=== PATIENT | male | born 1980 | race American Indian/Alaskan Native ===

== ENCOUNTER 2021-07-27 00:17 | Inpatient (IN) | payer OTHER ==
[2021-07-27] MEDS ORDERED: NALOXONE 0.4 MG/1 ML INJ IV PRN (00:19)
[2021-07-27] MEDS ORDERED: LORazepam 2 MG/ML VIAL IM PRN (00:19)
[2021-07-27] MEDS ORDERED: HALOPERIDOL LACTATE 5 MG/1 ML INJ IM PRN (00:19)
--- NOTE | 2021-07-27 00:20 | Emergency Department Report ---
ED General Adult HPI - General Chief complaint: Overdose Stated complaint: OVERDOSE Time Seen by Provider: 07/27/21 00:18 Source: patient, EMS (Verbal report received from emergency medical services. EMS documentation not available at time of chart dictation ), RN notes reviewed Mode of arrival: Stretcher - History of Present Illness Initial comments: This patient is a 40-year-old gentleman. He is brought to the hospital by emergency medical services. History obtained from EMS. As per verbal report from emergency medical services, patient reportedly took 35 tablets of a mitriptyline/Elavil, 1 hour prior to ER arrival, with a complaint of headache. EMS reports unremarkable vital signs in the field. In the emergency room, the patient is somnolent, but protecting his airway. He denies physical pain. The patient denies homicidality and suicidality. Patient is intoxicated/impaired at this time, and not able to describe the qualitative nature of symptoms, exacerba ting factors relieving factors or aggravating factors -: This evening Location: head - Related Data Allergies Allergy/AdvReac Type Severity Reaction Status Date / Time No Known Allergies Allergy Unverified 07/27/21 00:19 ED Review of Systems ROS: Stated complaint: OVERDOSE Other details as noted in HPI Comment: Unobtainable due to pts medical conditions Neurological: headache, confusion Psychiatric: denies: homicidal thoughts, suicidal thoughts ED Physical Exam - General Limitations: Altered Mental Status General appearance: appears intoxicated, lethargic - Head Head exam: Present: atraumatic, normocephalic - Eye Eye exam: Present: normal appearance, EOMI. Absent: nystagmus - ENT ENT exam: Present: normal exam, normal orophraynx, mucous membranes moist, normal external ear exam - Neck Neck exam: Present: normal inspection, full ROM. Absent: tenderness, meningismus - Respiratory Respiratory exam: Present: normal lung sounds bilaterally. Absent: respiratory distress, wheezes, rales, rhonchi, stridor, decreased breath sounds - Cardiovascular Cardiovascular Exam: Present: regular rate, normal rhythm, normal heart sounds. Absent: bradycardia, tachycardia, irregular rhythm, systolic murmur, diastolic murmur, rubs, gallop - GI/Abdominal GI/Abdominal exam: Present: soft. Absent: distended, tenderness, guarding, rebound, rigid, pulsatile mass - Rectal Rectal exam: Present: deferred - Extremities Exam Extremities exam: Present: normal inspection, other (2+ pulses noted in the bilateral upper and lower extremities. There is no palpable cord. negative Homans sign. Muscular compartments are soft. The pelvis is stable.). Absent: pedal edema, calf tenderness - Back Exam Back exam: Present: normal inspection. Absent: tenderness, CVA tenderness (R), CVA tenderness (L), paraspinal tenderness, vertebral tenderness - Neurological Exam Neurological exam: Present: altered, other (There is no facial droop. The tongue is midline. EOMI. Moves 4 extremities spontaneously.) - Psychiatric Psychiatric exam: Present: flat affect. Absent: homicidal ideation, suicidal ideation - Skin Skin exam: Present: warm, dry, intact, normal color. Absent: rash ED Course Vital Signs 07/27/21 07/27/21 07/27/21 00:21 00:32 00:35 Temperature 97.9 F 97.9 F Pulse Rate 90 90 Respiratory 17 17 17 Rate Blood Pressure 125/86 125/86 Blood Pressure 125/86 [Right] O2 Sat by Pulse 99 99 99 Oximetry 07/27/21 07/27/21 07/27/21 01:27 02:00 03:00 Temperature Pulse Rate 72 64 68 Respiratory 14 14 15 Rate Blood Pressure Blood Pressure 120/84 123/90 126/91 [Right] O2 Sat by Pulse 99 98 100 Oximetry - Reevaluation(s) Reevaluation #1: 07/27/21 00:49 Differential diagnosis, include but not limited to: Overdose, toxic encephalo louisa Assessment and plan: 40-year-old gentleman, presenting with sleepiness, lethargy, altered mental status, after overdose of amitriptyline, reportedly for headache. The patient reports he is not homicidal or suicidal. He is chemically impaired at this time. He is placed on hold. Psychiatric consultation requested. Noncontrast CT scan of the brain obtained, do not appreciate any obvious bleeding. Poison Control Center contacted by nursing team, their recommendations are reviewed and appreciated. Patient will be admitted to the medical service once initial diagnostics have resulted. They recommend EKG every 2 hours, I will defer to inpatient team to follow-up on EKG is ordered for hours 2, and 4. Should family present to the emergency room, we will discuss recommendations. Reevaluation #2: 07/27/21 00:51 Given alteration in mental status and aspiration risk, would not initiate charcoal at this time. 07/27/21 01:22 discussed with [facility] [place] [facility] [place] [facility] their recommendations are appreciated They advised supportive care, benzodiazepines for seizures and advised EKG every 2 hours. Should QRS lengthened to greater than 100 ms, they recommends trial dose of 2 A of sodium bicarbonate, and if QRS narrows with this intervention, consider initiation of sodium bicarbonate drip. Hospital physician, Dr. Kern to admit to [facility] 07/27/21 03:48 Patient is more awake and arousable. EKG #2 is unchanged from prior EKG. Vital signs stable and unremarkable at this time. Awaiting bed placement into the stepdown unit. ED Medical Decision Making - Lab Data Result diagrams: 07/27/21 00:25 07/27/21 00:25 Vital Signs 07/27/21 07/27/21 07/27/21 00:21 00:32 00:35 Temperature 97.9 F 97.9 F Pulse Rate 90 90 Respiratory 17 17 17 Rate Blood Pressure 125/86 125/86 Blood Pressure 125/86 [Right] O2 Sat by Pulse 99 99 99 Oximetry Lab Results 07/27/21 07/27/21 07/27/21 Range/Units 00:25 00:25 00:25 WBC 2.8 L (4.5-11.0) K/mm3 RBC 4.66 (3.65-5.03) M/mm3 Hgb 14.0 (11.8-15.2) gm/dl Hct 42.2 (35.5-45.6) % MCV 91 (84-94) fl MCH 30 (28-32) pg MCHC 33 (32-34) % RDW 13.4 (13.2-15.2) % Plt Count 167 (140-440) K/mm3 Lymph % (Auto) 37.7 H (13.4-35.0) % [place] % (Auto) 15.2 H (0.0-7.3) % Eos % (Auto) 2.8 (0.0-4.3) % Baso % (Auto) 0.5 (0.0-1.8) % Lymph # (Auto) 1.0 L (1.2-5.4) K/mm3 [place] # (Auto) 0.4 (0.0-0.8) K/mm3 Eos # (Auto) 0.1 (0.0-0.4) K/mm3 Baso # (Auto) 0.0 (0.0-0.1) K/mm3 Seg Neutrophils % 43.8 (40.0-70.0) % Seg Neutrophils # 1.2 L (1.8-7.7) K/mm3 PT (12.2-14.9) Sec. INR (0.87-1.13) APTT (24.2-36.6) Sec. Sodium 138 (137-145) mmol/L Potassium 3.7 (3.6-5.0) mmol/L Chloride 101.8 (98-107) mmol/L Carbon Dioxide 26 (22-30) mmol/L Anion Gap 14 mmol/L BUN 16 (9-20) mg/dL Creatinine 1.2 (0.8-1.3) mg/dL Estimated GFR > 60 ml/min BUN/Creatinine Ratio 13 % Glucose 122 H (75-100) mg/dL POC Glucose (70-105) mg/dL Calcium 8.6 (8.4-10.2) mg/dL Total Bilirubin 0.60 (0.1-1.2) mg/dL AST 20 (5-40) units/L ALT 21 (7-56) units/L Alkaline Phosphatase 64 (35-129) units/L Total Protein 7.2 (6.3-8.2) g/dL Albumin 4.3 (3.9-5) g/dL Albumin/Globulin Ratio 1.5 % Salicylates < 0.3 L (2.8-20.0) mg/dL Acetaminophen (10.0-30.0) ug/mL Plasma/Serum Alcohol (0-0.07) % 07/27/21 07/27/21 07/27/21 Range/Units 00:25 00:25 00:25 WBC (4.5-11.0) K/mm3 RBC (3.65-5.03) M/mm3 Hgb (11.8-15.2) gm/dl Hct (35.5-45.6) % MCV (84-94) fl MCH (28-32) pg MCHC (32-34) % RDW (13.2-15.2) % Plt Count (140-440) K/mm3 Lymph % (Auto) (13.4-35.0) % [place] % (Auto) (0.0-7.3) % Eos % (Auto) (0.0-4.3) % Baso % (Auto) (0.0-1.8) % Lymph # (Auto) (1.2-5.4) K/mm3 [place] # (Auto) (0.0-0.8) K/mm3 Eos # (Auto) (0.0-0.4) K/mm3 Baso # (Auto) (0.0-0.1) K/mm3 Seg Neutrophils % (40.0-70.0) % Seg Neutrophils # (1.8-7.7) K/mm3 PT 13.9 (12.2-14.9) Sec. INR 0.97 (0.87-1.13) APTT 30.8 (24.2-36.6) Sec. Sodium (137-145) mmol/L Potassium (3.6-5.0) mmol/L Chloride (98-107) mmol/L Carbon Dioxide (22-30) mmol/L Anion Gap mmol/L BUN (9-20) mg/dL Creatinine (0.8-1.3) mg/dL Estimated GFR ml/min BUN/Creatinine Ratio % Glucose (75-100) mg/dL POC Glucose (70-105) mg/dL Calcium (8.4-10.2) mg/dL Total Bilirubin (0.1-1.2) mg/dL AST (5-40) units/L ALT (7-56) units/L Alkaline Phosphatase (35-129) units/L Total Protein (6.3-8.2) g/dL Albumin (3.9-5) g/dL Albumin/Globulin Ratio % Salicylates (2.8-20.0) mg/dL Acetaminophen 5.0 L (10.0-30.0) ug/mL Plasma/Serum Alcohol < 0.01 (0-0.07) % 07/27/21 Range/Units 00:29 WBC (4.5-11.0) K/mm3 RBC (3.65-5.03) M/mm3 Hgb (11.8-15.2) gm/dl Hct (35.5-45.6) % MCV (84-94) fl MCH (28-32) pg MCHC (32-34) % RDW (13.2-15.2) % Plt Count (140-440) K/mm3 Lymph % (Auto) (13.4-35.0) % [place] % (Auto) (0.0-7.3) % Eos % (Auto) (0.0-4.3) % Baso % (Auto) (0.0-1.8) % Lymph # (Auto) (1.2-5.4) K/mm3 [place] # (Auto) (0.0-0.8) K/mm3 Eos # (Auto) (0.0-0.4) K/mm3 Baso # (Auto) (0.0-0.1) K/mm3 Seg Neutrophils % (40.0-70.0) % Seg Neutrophils # (1.8-7.7) K/mm3 PT (12.2-14.9) Sec. INR (0.87-1.13) APTT (24.2-36.6) Sec. Sodium (137-145) mmol/L Potassium (3.6-5.0) mmol/L Chloride (98-107) mmol/L Carbon Dioxide (22-30) mmol/L Anion Gap mmol/L BUN (9-20) mg/dL Creatinine (0.8-1.3) mg/dL Estimated GFR ml/min BUN/Creatinine Ratio % Glucose (75-100) mg/dL POC Glucose 107 H (70-105) mg/dL Calcium (8.4-10.2) mg/dL Total Bilirubin (0.1-1.2) mg/dL AST (5-40) units/L ALT (7-56) units/L Alkaline Phosphatase (35-129) units/L Total Protein (6.3-8.2) g/dL Albumin (3.9-5) g/dL Albumin/Globulin Ratio % Salicylates (2.8-20.0) mg/dL Acetaminophen (10.0-30.0) ug/mL Plasma/Serum Alcohol (0-0.07) % - EKG Data -: EKG Interpreted by De EKG shows normal: sinus rhythm Rate: normal - EKG Data 07/27/21 00:50 EKG #1 is interpreted at 12: 5 0 a.m. Sinus rhythm, rate 64 bpm. Normal axis, normal P wave axis, high left ventricular voltage, QT 3 9 3 ms, QTC 407 ms, [place] interval 1 6 2 ms. Minimal motion artifact. Not a STEMI peer - Radiology Data Radiology results: pending, report reviewed, image reviewed CT head/brain wo con INDICATION: headache ams od. TECHNIQUE: All CT scans at this location are performed using CT dose reduction for ALARA by means of automated exposure control. COMPARISON: None available. FINDINGS: There is no acute hemorrhage, brain edema, or hydrocephalus. The brain appears normal for age. The visualized paranasal sinuses are clear. IMPRESSION: 1. No acute intracranial abnormality. Signer Name: Sergio Sweeney MD Signed: 07/26/2021 11:56 PM Workstation Name: [id number] Critical care attestation.: If time is entered above; I have spent that time in minutes in the direct care of this critically ill patient, excluding procedure time. ED Disposition Clinical Impression: Overdose, Encephalopathy, Headache Disposition: ADMITTED INPATIENT Is pt being admited?: Yes Does the pt Need Aspirin: No Condition: Serious
[2021-07-27 00:52] LABS: Basophils % (Auto) 0.5 % (0.0-1.8); Eosinophils # (Auto) 0.1 K/mm3 (0.0-0.4); Eosinophils % (Auto) 2.8 % (0.0-4.3); Hematocrit 42.2 % (35.5-45.6); Lymphocytes % (Auto) 37.7 % (13.4-35.0); Mean Corpuscular HGB Conc 33 % (32-34); Mean Corpuscular Volume 91 fl (84-94); Monocytes # (Auto) 0.4 K/mm3 (0.0-0.8); Monocytes % (Auto) 15.2 % (0.0-7.3); Platelet Count 167 K/mm3 (140-440); Red Blood Count 4.66 M/mm3 (3.65-5.03); Red Cell Distribution Width 13.4 % (13.2-15.2)
[2021-07-27 00:59] LABS: INR 0.97 (0.87-1.13)
[2021-07-27 01:00] LABS: Partial Thromboplastin Time 30.8 Sec. (24.2-36.6)
--- NOTE | 2021-07-27 01:00 | Cat Scan Report ---
CT head/brain wo con INDICATION: headache ams od. TECHNIQUE: All CT scans at this location are performed using CT dose reduction for ALARA by means of automated e xposure control. COMPARISON: None available. FINDINGS: There is no acute hemorrhage, brain edema, or hydrocephalus. The brain appears normal for age. The vi sualized paranasal sinuses are clear. IMPRESSION: 1. No acute intracranial abnormality. Signer Name: Sergio Sweeney MD Signed: 07/27/2021 12:56 AM Workstation Name: [id number] [email or web address] [id number]
[2021-07-27 01:09] LABS: Alanine Aminotransferase 21 units/L (7-56); Albumin 4.3 g/dL (3.9-5); BUN/Creatinine Ratio 13; Blood Urea Nitrogen 16 mg/dL (9-20); Calcium 8.6 mg/dL (8.4-10.2); Hemolysis Index 9
[2021-07-27] MEDS ORDERED: LACTATED RINGERS 1,000 ML IV ONE (01:17)
[2021-07-27 01:28] LABS: Bilirubin,Urine NEG (Negative); Blood,Urine NEG (Negative); Color,Urine Straw (Yellow); Protein,Urine <15 mg/dL mg/dL (Negative); Urobilinogen,Urine < 2.0 mg/dL (<2.0)
[2021-07-27 01:39] LABS: Amphetamine Screen,Urine PRESUMPTIVE NEGATIVE; Benzodiazepines Screen,Urine PRESUMPTIVE NEGATIVE; Cannabinoid Screen,Urine PRESUMPTIVE POSITIVE; Cocaine Screen,Urine PRESUMPTIVE NEGATIVE; Methadone Screen,Urine PRESUMPTIVE NEGATIVE; Opiate Screen,Urine PRESUMPTIVE NEGATIVE
[2021-07-27 01:46] LABS: Mucus,Urine FEW /HPF; RBC,Urine < 1.0 /HPF (0.0-6.0); WBC,Urine < 1.0 /HPF (0.0-6.0)
[2021-07-27] MEDS ORDERED: MORPHINE 2 MG/1 ML INJ IV PRN (02:17)
[2021-07-27] MEDS ORDERED: ACETAMINOPHEN 325 MG TAB PO PRN (02:17)
[2021-07-27] MEDS ORDERED: ALBUTEROL 2.5 MG/3 ML NEBU IH PRN (02:17)
[2021-07-27] MEDS ORDERED: HYDROmorphone 1 MG/1 ML INJ IV PRN (02:17)
[2021-07-27] MEDS ORDERED: ONDANSETRON 4 MG/2 ML INJ IV PRN (02:17)
--- NOTE | 2021-07-27 02:25 | History and Physical Report ---
History of Present Illness Date of examination: 07/27/21 Date of admission: 07/27/21 Chief complaint: Drug overdose Altered mental status History of present illness: 40-year male with unknown past medical history was brought to the emergency room because sleepiness, lethargy, altered mental status, after overdose of amitriptyline, reportedly for headache. As per verbal report from emergency medical services, patient reportedly took 35 tablets of amitriptyline/Elavil, 1 hour prior to ER arrival, with a complaint of headache. The patient is not homicidal or suicidal. He is chemically impaired at this time. He is placed on hold. Psychiatric consultation requested. In the emergency room noncontrast CT scan of the brain showed no acute intracranial abnormality. Urine drug screen is positive for marijuana. Poison Control Center contacted by nursing team,'s were going to admit the patient to the [facility]. We will put the patient nothing by mouth IV fluid. We will monitor the patient closely we also consult psych for evaluation Past History Past Surgical History: No surgical history Social history: other (Marijuana abuse) Family history: no significant family history Medications and Allergies Allergies Allergy/AdvReac Type Severity Reaction Status Date / Time No Known Allergies Allergy Unverified 07/27/21 00:19 Active Meds: Active Medications Acetaminophen (Acetaminophen 325 Mg Tab) 650 mg PO Q4H PRN PRN Reason: Pain MILD(1-3)/Fever >100.5/CORRALES Albuterol (Albuterol 2.5 Mg/3 Ml Nebu) 2.5 mg IH Q3HRT PRN PRN Reason: Shortness Of Breath Albuterol/Ipratropium (Ipratropium/Albuterol Sulfate 3 Ml Ampul.Neb) 1 ampul IH Q6HRT VALERIE Famotidine (Famotidine 20 Mg/2 Ml Inj) 20 mg IV BID VALERIE Haloperidol Lactate (Haloperidol Lactate 5 Mg/1 Ml Inj) 5 mg IM Q6HR PRN PRN Reason: Agitation Heparin Sodium (Porcine) (Heparin 5,000 Unit/1 Ml Vial) 5,000 unit SUB-Q Q12HR VALERIE Hydromorphone HCl (Hydromorphone 1 Mg/1 Ml Inj) 0.5 mg IV Q3H PRN PRN Reason: Pain , Severe (7-10) Dextrose/Sodium Chloride (D5/0.45ns) 1,000 mls @ 125 mls/hr IV DIRECT VALERIE Lorazepam (Lorazepam 2 Mg/Ml Vial) 2 mg IM Q4HR PRN PRN Reason: Agitation Morphine Sulfate (Morphine 2 Mg/1 Ml Inj) 2 mg IV Q4H PRN PRN Reason: Pain, Moderate (4-6) Naloxone HCl (Naloxone 0.4 Mg/1 Ml Inj) 0.1 mg IV Q2MIN PRN PRN Reason: Res Rate </= 8 or 02 SAT < 92% Ondansetron HCl (Ondansetron 4 Mg/2 Ml Inj) 4 mg IV Q8H PRN PRN Reason: Nausea And Vomiting Sodium Chloride (Sodium Chloride 0.9% 10 Ml Flush Syringe) 10 ml IV BID VALERIE Sodium Chloride (Sodium Chloride 0.9% 10 Ml Flush Syringe) 10 ml IV PRN PRN PRN Reason: LINE FLUSH Review of Systems All systems: negative Constitutional: malaise, lethargy, other (Altered mental status, sleepy) Exam - Constitutional Vitals: Temp Pulse Resp BP Pulse Ox 97.9 F 64 14 123/90 98 07/27/21 00:32 07/27/21 02:00 07/27/21 02:00 07/27/21 02:00 07/27/21 02:00 General appearance: Present: no acute distress, well-nourished - EENT Eyes: Present: PERRL ENT: hearing intact, clear oral mucosa - Neck Neck: Present: supple, normal ROM - Respiratory Respiratory effort: normal Respiratory: bilateral: CTA - Cardiovascular Heart Sounds: Present: S1 & S2. Absent: rub, click - Extremities Extremities: pulses symmetrical, No edema Peripheral Pulses: within normal limits - Abdominal General gastrointestinal: Present: soft, non-tender, non-distended, normal bowel sounds Male genitourinary: Present: normal - Integumentary Integumentary: Present: clear, warm, dry - Musculoskeletal Musculoskeletal: gait normal, strength equal bilaterally - Psychiatric Psychiatric: other (Patient is sleepy, altered mental status) - Neurologic Neurologic: CNII-XII intact, moves all extremities, other (Patient is sleepy, altered mental status) Results - Labs CBC & Chem 7: 07/27/21 00:25 07/27/21 00:25 Labs: Laboratory Last Values WBC 2.8 K/mm3 (4.5-11.0) L 07/27/21 00:25 RBC 4.66 M/mm3 (3.65-5.03) 07/27/21 00:25 Hgb 14.0 gm/dl (11.8-15.2) 07/27/21 00:25 Hct 42.2 % (35.5-45.6) 07/27/21 00:25 MCV 91 fl (84-94) 07/27/21 00:25 MCH 30 pg (28-32) 07/27/21 00:25 MCHC 33 % (32-34) 07/27/21 00:25 RDW 13.4 % (13.2-15.2) 07/27/21 00:25 Plt Count 167 K/mm3 (140-440) 07/27/21 00:25 Lymph % (Auto) 37.7 % (13.4-35.0) H 07/27/21 00:25 [place] % (Auto) 15.2 % (0.0-7.3) H 07/27/21 00:25 Eos % (Auto) 2.8 % (0.0-4.3) 07/27/21 00:25 Baso % (Auto) 0.5 % (0.0-1.8) 07/27/21 00:25 Lymph # (Auto) 1.0 K/mm3 (1.2-5.4) L 07/27/21 00:25 [place] # (Auto) 0.4 K/mm3 (0.0-0.8) 07/27/21 00:25 Eos # (Auto) 0.1 K/mm3 (0.0-0.4) 07/27/21 00:25 Baso # (Auto) 0.0 K/mm3 (0.0-0.1) 07/27/21 00:25 Seg Neutrophils % 43.8 % (40.0-70.0) 07/27/21 00:25 Seg Neutrophils # 1.2 K/mm3 (1.8-7.7) L 07/27/21 00:25 PT 13.9 Sec. (12.2-14.9) 07/27/21 00:25 INR 0.97 (0.87-1.13) 07/27/21 00:25 APTT 30.8 Sec. (24.2-36.6) 07/27/21 00:25 Sodium 138 mmol/L (137-145) 07/27/21 00:25 Potassium 3.7 mmol/L (3.6-5.0) 07/27/21 00:25 Chloride 101.8 mmol/L (98-107) 07/27/21 00:25 Carbon Dioxide 26 mmol/L (22-30) 07/27/21 00:25 Anion Gap 14 mmol/L 07/27/21 00:25 BUN 16 mg/dL (9-20) 07/27/21 00:25 Creatinine 1.2 mg/dL (0.8-1.3) 07/27/21 00:25 Estimated GFR > 60 ml/min 07/27/21 00:25 BUN/Creatinine Ratio 13 % 07/27/21 00:25 Glucose 122 mg/dL (75-100) H 07/27/21 00:25 POC Glucose 107 mg/dL (70-105) H 07/27/21 00:29 Calcium 8.6 mg/dL (8.4-10.2) 07/27/21 00:25 Total Bilirubin 0.60 mg/dL (0.1-1.2) 07/27/21 00:25 AST 20 units/L (5-40) 07/27/21 00:25 ALT 21 units/L (7-56) 07/27/21 00:25 Alkaline Phosphatase 64 units/L (35-129) 07/27/21 00:25 Total Protein 7.2 g/dL (6.3-8.2) 07/27/21 00:25 Albumin 4.3 g/dL (3.9-5) 07/27/21 00:25 Albumin/Globulin Ratio 1.5 % 07/27/21 00:25 TSH 1.380 mlU/mL (0.270-4.200) 07/27/21 00:25 Urine Color Straw (Yellow) 07/27/21 Unknown Urine Turbidity Clear (Clear) 07/27/21 Unknown Urine pH 6.0 (5.0-7.0) 07/27/21 Unknown Ur Specific [place] 1.010 (1.003-1.030) 07/27/21 Unknown Urine Protein <15 mg/dl mg/dL (Negative) 07/27/21 Unknown Urine Glucose (UA) Neg mg/dL (Negative) 07/27/21 Unknown Urine Ketones Neg mg/dL (Negative) 07/27/21 Unknown Urine Blood Neg (Negative) 07/27/21 Unknown Urine Nitrite Neg (Negative) 07/27/21 Unknown Urine Bilirubin Neg (Negative) 07/27/21 Unknown Urine Urobilinogen < 2.0 mg/dL (<2.0) 07/27/21 Unknown Ur Leukocyte Esterase Neg (Negative) 07/27/21 Unknown Urine WBC (Auto) < 1.0 /HPF (0.0-6.0) 07/27/21 Unknown Urine RBC (Auto) < 1.0 /HPF (0.0-6.0) 07/27/21 Unknown U Epithel Cells (Auto) < 1.0 /HPF (0-13.0) 07/27/21 Unknown Urine Mucus Few /HPF 07/27/21 Unknown Salicylates < 0.3 mg/dL (2.8-20.0) L 07/27/21 00:25 Urine Opiates Screen Presumptive negative 07/27/21 Unknown Urine Methadone Screen Presumptive negative 07/27/21 Unknown Acetaminophen 5.0 ug/mL (10.0-30.0) L 07/27/21 00:25 Ur Barbiturates Screen Presumptive negative 07/27/21 Unknown Ur Phencyclidine Scrn Presumptive negative 07/27/21 Unknown Ur Amphetamines Screen Presumptive negative 07/27/21 Unknown U Benzodiazepines Scrn Presumptive negative 07/27/21 Unknown [place] 0.1 mmol/L (0.0-1.2) 07/27/21 00:25 Urine Cocaine Screen Presumptive negative 07/27/21 Unknown U Marijuana (THC) Screen Presumptive positive 07/27/21 Unknown Plasma/Serum Alcohol < 0.01 % (0-0.07) 07/27/21 00:25 - Imaging and Cardiology CT Scan - head: report reviewed Assessment and Plan VTE prophylaxis?: Chemical Plan of care discussed with patient/family: Yes - Patient Problems (1) Overdose Current Visit: Yes Status: Acute Plan to address problem: Admit the patient to the IMCU. N.p.o. Oxygen by nasal cannula 3 L/min. DuoNeb by nebulizer every 4 hours. Albuterol by nebulizer every 4 hours as needed. D5 half-normal saline at the rate of 125 cc/h. Pepcid 20 mg IV every 12 hours. Zofran 4 million IV every 6 hours as needed. Recheck CBC CMP in the morning. Reconsult psych for evaluation (2) Encephalopathy Current Visit: Yes Status: Acute Plan to address problem: N.p.o. Oxygen by nasal cannula 3 L/min. DuoNeb by nebulizer every 4 hours. Albuterol by nebulizer every 4 hours as needed. D5 half-normal saline at the rate of 125 cc/h. Pepcid 20 mg IV every 12 hours. Zofran 4 million IV every 6 hours as needed. Recheck CBC CMP in the morning. Reconsult psych for evaluation (3) Marijuana abuse Current Visit: Yes Status: Acute Plan to address problem: We counseled the patient regarding quit taking marijuana. (4) Headache Current Visit: Yes Status: Acute Plan to address problem: Tylenol 650 mg p.o. every 6 hours as needed. Morphine 2 mg IV every 4 hours as needed (5) DVT prophylaxis Current Visit: Yes Status: Acute Plan to address problem: Heparin 5000 units subcu every 12 hours for DVT prophylaxis. Pepcid 20 mg IV every 12 hours for GI prophylaxis. Patient is a full code
[2021-07-27] MEDS: D5W/0.45% NACL 1,000 ML IV SCH ×2 (05:03→12:58)
[2021-07-27] MEDS ORDERED: LORazepam 2 MG/ML VIAL IV PRN (08:00)
--- NOTE | 2021-07-27 08:01 | Progress Note ---
Assessment and Plan Assessment and plan: HPI: 40-year male with unknown past medical history was brought to the emergency room because sleepiness, lethargy, altered mental status, after overdose of amitriptyline, reportedly for headache. As per verbal report from emergency medical services, patient reportedly took 35 tablets of amitriptyline/Elavil, 1 hour prior to ER arrival, with a complaint of headache. The patient is not homicidal or suicidal. He is chemically impaired at this time. He is placed on hold. Psychiatric consultation requested. Admitted to IMCU for TCA overdose and metabolic encephalopathy Hospital Course: 07/27: No events on telemetry review noted. Patient had no seizure activity noted by staff or myself on encounter. Will follow psychiatry recommendations as well as poison control direction. Will monitor in IMCU for next 24hrs and patient can likely be downgraded if no events. Assessment and plan: #Tricyclic antidepressant overdose - per reports, had taken 20-25 25 mg amytriptyline pills. - Poison Control Center contacted in ED: recommended serial EKG monitoring and administration of sodium bicarb is QRS > 100ms. - apparently unintentional OD - mental health consultation - QRS duration on serial EKGs: 89 ms, 91 ms, 79 ms. - K 3.7 - no indication at this time for sodium bicarb - continuous tele monitoring - ativan 2 mg IV prn seizure #Acute metabolic encephalopathy - likely metabolic in nature given OD on TCA meds. - CT scan of the brain showed no acute intracranial abnormality. - NPO - D5-1/2NS IVF #THC abuse -Urine drug screen is positive for marijuana. + 15 min behavioral health counseling on substance abuse and THC cessation #Headache - prn tylenol ##Advance care planning Disease education conducted, care plan discussed, diagnoses discussed, prognosis discussed, patient is full code, patient acknowledges understanding and agree with care plan, +30 minutes. The high probability of a clinically significant, sudden or life threatening deterioration of the [neuro] system(s) required my full and direct attention, intervention and personal management. The aggregate critical care time was [60] minutes. This time is in addition to time spent performing reported procedures but includes the following: [x] Data Review and interpretation [x] Patient assessment and monitoring of vital signs [x] Documentation [x] Medication orders and management History Interval history: Patient seen and examined on bedside. Very drowsy on encounter but protecting airway. Patient does not appear to be in distress. Answers some yes/no questions. Denied chest pain/n/v/sob. VSS on encounter. Hospitalist Physical - Physical exam Narrative exam: Physical Exam: VITAL SIGNS: Reviewed. GENERAL: The patient appears normally developed, Vital signs as documented. Very drowsy HEAD: No signs of head trauma. EYES: Pupils are equal. Extraocular motions intact. EARS: Hearing grossly intact. MOUTH: Oropharynx is normal. NECK: No adenopathy, no JVD. CHEST: Chest with clear breath sounds bilaterally. No wheezes, rales, or rhonchi. CARDIAC: Regular rate and rhythm. S1 and S2, without murmurs, gallops, or rubs. VASCULAR: No Edema. Peripheral pulses normal and equal in all extremities. ABDOMEN: Soft, non tender and non distended. No rebound or guarding, and no masses palpated. Bowel Sounds normal. MUSCULOSKELETAL: Good range of motion of all major joints. Extremities without clubbing, cyanosis or edema. NEUROLOGIC EXAM: Unable to assess. PSYCHIATRIC: Unable to assess SKIN: detail exam as documented in skin assessment - Constitutional Vitals: Temp Pulse Resp BP Pulse Ox 97.6 F 59 L 13 125/85 97 07/27/21 04:00 07/27/21 06:00 07/27/21 06:00 07/27/21 06:00 07/27/21 06:00 General appearance: Present: no acute distress, well-nourished Results - Labs CBC & Chem 7: 07/27/21 00:25 07/27/21 00:25 Labs: Laboratory Last Values WBC 2.8 K/mm3 (4.5-11.0) L 07/27/21 00:25 RBC 4.66 M/mm3 (3.65-5.03) 07/27/21 00:25 Hgb 14.0 gm/dl (11.8-15.2) 07/27/21 00:25 Hct 42.2 % (35.5-45.6) 07/27/21 00:25 MCV 91 fl (84-94) 07/27/21 00:25 MCH 30 pg (28-32) 07/27/21 00:25 MCHC 33 % (32-34) 07/27/21 00:25 RDW 13.4 % (13.2-15.2) 07/27/21 00:25 Plt Count 167 K/mm3 (140-440) 07/27/21 00:25 Lymph % (Auto) 37.7 % (13.4-35.0) H 07/27/21 00:25 [place] % (Auto) 15.2 % (0.0-7.3) H 07/27/21 00:25 Eos % (Auto) 2.8 % (0.0-4.3) 07/27/21 00:25 Baso % (Auto) 0.5 % (0.0-1.8) 07/27/21 00:25 Lymph # (Auto) 1.0 K/mm3 (1.2-5.4) L 07/27/21 00:25 [place] # (Auto) 0.4 K/mm3 (0.0-0.8) 07/27/21 00:25 Eos # (Auto) 0.1 K/mm3 (0.0-0.4) 07/27/21 00:25 Baso # (Auto) 0.0 K/mm3 (0.0-0.1) 07/27/21 00:25 Seg Neutrophils % 43.8 % (40.0-70.0) 07/27/21 00:25 Seg Neutrophils # 1.2 K/mm3 (1.8-7.7) L 07/27/21 00:25 PT 13.9 Sec. (12.2-14.9) 07/27/21 00:25 INR 0.97 (0.87-1.13) 07/27/21 00:25 APTT 30.8 Sec. (24.2-36.6) 07/27/21 00:25 Sodium 138 mmol/L (137-145) 07/27/21 00:25 Potassium 3.7 mmol/L (3.6-5.0) 07/27/21 00:25 Chloride 101.8 mmol/L (98-107) 07/27/21 00:25 Carbon Dioxide 26 mmol/L (22-30) 07/27/21 00:25 Anion Gap 14 mmol/L 07/27/21 00:25 BUN 16 mg/dL (9-20) 07/27/21 00:25 Creatinine 1.2 mg/dL (0.8-1.3) 07/27/21 00:25 Estimated GFR > 60 ml/min 07/27/21 00:25 BUN/Creatinine Ratio 13 % 07/27/21 00:25 Glucose 122 mg/dL (75-100) H 07/27/21 00:25 POC Glucose 107 mg/dL (70-105) H 07/27/21 00:29 Calcium 8.6 mg/dL (8.4-10.2) 07/27/21 00:25 Total Bilirubin 0.60 mg/dL (0.1-1.2) 07/27/21 00:25 AST 20 units/L (5-40) 07/27/21 00:25 ALT 21 units/L (7-56) 07/27/21 00:25 Alkaline Phosphatase 64 units/L (35-129) 07/27/21 00:25 Total Protein 7.2 g/dL (6.3-8.2) 07/27/21 00:25 Albumin 4.3 g/dL (3.9-5) 07/27/21 00:25 Albumin/Globulin Ratio 1.5 % 07/27/21 00:25 TSH 1.380 mlU/mL (0.270-4.200) 07/27/21 00:25 Urine Color Straw (Yellow) 07/27/21 Unknown Urine Turbidity Clear (Clear) 07/27/21 Unknown Urine pH 6.0 (5.0-7.0) 07/27/21 Unknown Ur Specific [place] 1.010 (1.003-1.030) 07/27/21 Unknown Urine Protein <15 mg/dl mg/dL (Negative) 07/27/21 Unknown Urine Glucose (UA) Neg mg/dL (Negative) 07/27/21 Unknown Urine Ketones Neg mg/dL (Negative) 07/27/21 Unknown Urine Blood Neg (Negative) 07/27/21 Unknown Urine Nitrite Neg (Negative) 07/27/21 Unknown Urine Bilirubin Neg (Negative) 07/27/21 Unknown Urine Urobilinogen < 2.0 mg/dL (<2.0) 07/27/21 Unknown Ur Leukocyte Esterase Neg (Negative) 07/27/21 Unknown Urine WBC (Auto) < 1.0 /HPF (0.0-6.0) 07/27/21 Unknown Urine RBC (Auto) < 1.0 /HPF (0.0-6.0) 07/27/21 Unknown U Epithel Cells (Auto) < 1.0 /HPF (0-13.0) 07/27/21 Unknown Urine Mucus Few /HPF 07/27/21 Unknown Salicylates < 0.3 mg/dL (2.8-20.0) L 07/27/21 00:25 Urine Opiates Screen Presumptive negative 07/27/21 Unknown Urine Methadone Screen Presumptive negative 07/27/21 Unknown Acetaminophen 5.0 ug/mL (10.0-30.0) L 07/27/21 00:25 Ur Barbiturates Screen Presumptive negative 07/27/21 Unknown Ur Phencyclidine Scrn Presumptive negative 07/27/21 Unknown Ur Amphetamines Screen Presumptive negative 07/27/21 Unknown U Benzodiazepines Scrn Presumptive negative 07/27/21 Unknown [place] 0.1 mmol/L (0.0-1.2) 07/27/21 00:25 Urine Cocaine Screen Presumptive negative 07/27/21 Unknown U Marijuana (THC) Screen Presumptive positive 07/27/21 Unknown Drugs of Abuse Note Disclamer 07/27/21 Unknown Plasma/Serum Alcohol < 0.01 % (0-0.07) 07/27/21 00:25 [place]/IV: Voiding Method Urinal Active Medications - Current Medications Current Medications: Generic Name Dose Route Start Last Admin Trade Name Freq PRN Reason Stop Dose Admin Acetaminophen 650 mg 07/27/21 02:17 Acetaminophen 325 Mg Tab PO Q4H PRN Pain MILD(1-3)/Fever >100.5/CORRALES Albuterol 2.5 mg 07/27/21 02:17 Albuterol 2.5 Mg/3 Ml Nebu IH Q3HRT PRN Shortness Of Breath Albuterol/Ipratropium 1 ampul 07/27/21 08:00 Ipratropium/Albuterol Sulfate 3 Ml Ampul.Neb IH Q6HRT VALERIE Famotidine 20 mg 07/27/21 10:00 Famotidine 20 Mg/2 Ml Inj IV BID VALERIE Haloperidol Lactate 5 mg 07/27/21 00:19 Haloperidol Lactate 5 Mg/1 Ml Inj IM Q6HR PRN Agitation Heparin Sodium (Porcine) 5,000 unit 07/27/21 10:00 Heparin 5,000 Unit/1 Ml Vial SUB-Q Q12HR VALERIE Hydromorphone HCl 0.5 mg 07/27/21 02:17 Hydromorphone 1 Mg/1 Ml Inj IV Q3H PRN Pain , Severe (7-10) Dextrose/Sodium Chloride 1,000 mls @ 125 mls/hr 07/27/21 03:00 07/27/21 05:03 D5/0.45ns IV 125 mls/hr DIRECT VALERIE Administration Lorazepam 2 mg 07/27/21 00:19 Lorazepam 2 Mg/Ml Vial IM Q4HR PRN Agitation Morphine Sulfate 2 mg 07/27/21 02:17 Morphine 2 Mg/1 Ml Inj IV Q4H PRN Pain, Moderate (4-6) Naloxone HCl 0.1 mg 07/27/21 00:19 Naloxone 0.4 Mg/1 Ml Inj IV Q2MIN PRN Res Rate </= 8 or 02 SAT < 92% Ondansetron HCl 4 mg 07/27/21 02:17 Ondansetron 4 Mg/2 Ml Inj IV Q8H PRN Nausea And Vomiting Sodium Chloride 10 ml 07/27/21 10:00 Sodium Chloride 0.9% 10 Ml Flush Syringe IV BID VALERIE Sodium Chloride 10 ml 07/27/21 02:17 Sodium Chloride 0.9% 10 Ml Flush Syringe IV PRN PRN LINE FLUSH
[2021-07-27] MEDS: IPRATROPIUM/ALBUTEROL SULFATE 3 ML AMPUL.NEB IH SCH ×2 (08:17→15:56)
[2021-07-27] MEDS: HEPARIN 5,000 UNIT/1 ML VIAL SUB-Q SCH ×2 (09:43→22:14)
[2021-07-27] MEDS: FAMOTIDINE 20 MG/2 ML INJ IV SCH ×2 (09:43→22:14)
--- NOTE | 2021-07-27 10:51 | Consultation ---
History of Present Illness - Reason for Consult Consult date: 07/27/21 Reason for consult: OD - Chief Complaint Chief complaint: Drug overdose Altered mental status - History of Present Psychiatric Illness Per Note: This patient is a 40-year-old gentleman. He is brought to the hospital by emergency medical services. History obtained from EMS. As per verbal report from emergency medical services, patient reportedly took 35 tablets of amitriptyline/Elavil, 1 hour prior to ER arrival, with a complaint of headache. EMS reports unremarkable vital signs in the field. In the emergency room, the patient is somnolent, but protecting his airway. He denies physical pain. The patient denies homicidality and suicidality. Patient is intoxicated/impaired at this time, and not able to describe the qualitative nature of symptoms, exacerbating factors relieving factors or aggravating factors. The patient is a 40 year old male with unknown psychiatric history. The patient was seen today. The patient is lethargic and unable to provide detailed information. Collateral from patient's : She reports that after their dinner outing, the patient started complaining of headache; she states that he initially took some ibuprofen and apparently when the headache did not subside he then started taking Amitriptyline that was prescribed for her by her PCP and stating that the patient might have consumed about 18 pills. She reports that the patient was disoriented and stumbling when she saw him. She also reports that the patient was on Kratom however, he stopped taking it about a week ago due to side effects. PAST PSYCHIATRIC HISTORY SOCIAL HISTORY ROS MENTAL STATUS EXAMINATION Assessment and Plan (1) Poisoning by drugs, unspecified (2) Treatment Plan No medications prescribed Risks, benefits and alternatives of medications discussed with the patient, questions answered and consent obtained from patient. PSYCHOTHERAPY: Supportive psychotherapy provided MEDICAL: Per primary team DELIRIUM PRECAUTIONS: Please re-orient patient frequently, keep lights on during the day, and minimize benzodiazepines and opiates as these medications could worsen patient's confusion. BANKING ASSISTANT: Per primary DISPOSITION: Do not recommend acute inpatient psychiatric hospitalization at this time. Will follow. Thank you for the consult. Please contact with any questions and/or concerns. Case discussed with Dr. Cruz who agrees with current disposition Medications and Allergies Medications and Allergies Allergies Allergy/AdvReac Type Severity Reaction Status Date / Time No Known Allergies Allergy Unverified 07/27/21 00:19 Active Meds: Active Medications Acetaminophen (Acetaminophen 325 Mg Tab) 650 mg PO Q4H PRN PRN Reason: Pain MILD(1-3)/Fever >100.5/CORRALES Albuterol (Albuterol 2.5 Mg/3 Ml Nebu) 2.5 mg IH Q3HRT PRN PRN Reason: Shortness Of Breath Albuterol/Ipratropium (Ipratropium/Albuterol Sulfate 3 Ml Ampul.Neb) 1 ampul IH Q6HRT [facility] Famotidine (Famotidine 20 Mg/2 Ml Inj) 20 mg IV BID [facility] Last Admin: 07/27/21 09:43 Dose: 20 mg Haloperidol Lactate (Haloperidol Lactate 5 Mg/1 Ml Inj) 5 mg IM Q6HR PRN PRN Reason: Agitation Heparin Sodium (Porcine) (Heparin 5,000 Unit/1 Ml Vial) 5,000 unit SUB-Q Q12HR [facility] Last Admin: 07/27/21 09:43 Dose: 5,000 unit Hydromorphone HCl (Hydromorphone 1 Mg/1 Ml Inj) 0.5 mg IV Q3H PRN PRN Reason: Pain , Severe (7-10) Dextrose/Sodium Chloride (D5/0.45ns) 1,000 mls @ 125 mls/hr IV DIRECT [facility] Last Admin: 07/27/21 05:03 Dose: 125 mls/hr Lorazepam (Lorazepam 2 Mg/Ml Vial) 2 mg IV Q5MIN PRN PRN Reason: Seizures Morphine Sulfate (Morphine 2 Mg/1 Ml Inj) 2 mg IV Q4H PRN PRN Reason: Pain, Moderate (4-6) Naloxone HCl (Naloxone 0.4 Mg/1 Ml Inj) 0.1 mg IV Q2MIN PRN PRN Reason: Res Rate </= 8 or 02 SAT < 92% Ondansetron HCl (Ondansetron 4 Mg/2 Ml Inj) 4 mg IV Q8H PRN PRN Reason: Nausea And Vomiting Sodium Chloride (Sodium Chloride 0.9% 10 Ml Flush Syringe) 10 ml IV BID [facility] Last Admin: 07/27/21 09:44 Dose: 10 ml Sodium Chloride (Sodium Chloride 0.9% 10 Ml Flush Syringe) 10 ml IV PRN PRN PRN Reason: LINE FLUSH Mental Status Exam - Vital signs Last Vital Signs Temp 98.0 F 07/27/21 08:00 Pulse 73 07/27/21 10:31 Resp 14 07/27/21 10:31 BP 106/68 07/27/21 10:31 Pulse Ox 99 07/27/21 10:31 Results Result Diagrams: 07/27/21 00:25 07/27/21 00:25 Abnormal lab results 07/27/21 07/27/21 07/27/21 Range/Units 00:25 00:25 00:25 WBC 2.8 L (4.5-11.0) K/mm3 Lymph % (Auto) 37.7 H (13.4-35.0) % [place] % (Auto) 15.2 H (0.0-7.3) % Lymph # (Auto) 1.0 L (1.2-5.4) K/mm3 Seg Neutrophils # 1.2 L (1.8-7.7) K/mm3 Glucose 122 H (75-100) mg/dL POC Glucose (70-105) mg/dL Salicylates < 0.3 L (2.8-20.0) mg/dL Acetaminophen (10.0-30.0) ug/mL 07/27/21 07/27/21 Range/Units 00:25 00:29 WBC (4.5-11.0) K/mm3 Lymph % (Auto) (13.4-35.0) % [place] % (Auto) (0.0-7.3) % Lymph # (Auto) (1.2-5.4) K/mm3 Seg Neutrophils # (1.8-7.7) K/mm3 Glucose (75-100) mg/dL POC Glucose 107 H (70-105) mg/dL Salicylates (2.8-20.0) mg/dL Acetaminophen 5.0 L (10.0-30.0) ug/mL All other labs normal.
--- NOTE | 2021-07-27 15:19 | Electrocardiograph Report ---
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
--- NOTE | 2021-07-27 15:21 | Electrocardiograph Report ---
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
--- NOTE | 2021-07-27 15:22 | Electrocardiograph Report ---
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
[2021-07-27] MEDS ORDERED: DEXTROSE 10% IN WATER 1,000 ML IV SCH (18:00)
[2021-07-28] MEDS ORDERED: SODIUM CHLORIDE 0.9% 1000 ML 1,000 ML IV ONE (00:20)
[2021-07-28 05:10] LABS: Basophils % (Auto) 0.3 % (0.0-1.8); Eosinophils # (Auto) 0.1 K/mm3 (0.0-0.4); Eosinophils % (Auto) 0.8 % (0.0-4.3); Hematocrit 39.8 % (35.5-45.6); Hemoglobin 13.5 gm/dl (11.8-15.2); Lymphocytes # (Auto) 1.1 K/mm3 (1.2-5.4); Lymphocytes % (Auto) 15.1 % (13.4-35.0); Mean Corpuscular HGB Conc 34 % (32-34); Mean Corpuscular Volume 91 fl (84-94); Monocytes # (Auto) 0.5 K/mm3 (0.0-0.8); Monocytes % (Auto) 6.7 % (0.0-7.3); Platelet Count 160 K/mm3 (140-440); Red Blood Count 4.37 M/mm3 (3.65-5.03)
[2021-07-28 05:15] LABS: Alanine Aminotransferase 15 units/L (7-56); Albumin 3.5 g/dL (3.9-5); BUN/Creatinine Ratio 7; Blood Urea Nitrogen 7 mg/dL (9-20); Calcium 8.5 mg/dL (8.4-10.2); Hemolysis Index 4
--- NOTE | 2021-07-28 07:34 | Progress Note ---
Assessment and Plan Assessment and plan: HPI: 40-year male with unknown past medical history was brought to the emergency room because sleepiness, lethargy, altered mental status, after overdose of amitriptyline, reportedly for headache. As per verbal report from emergency medical services, patient reportedly took 35 tablets of amitriptyline/Elavil, 1 hour prior to ER arrival, with a complaint of headache. The patient is not homicidal or suicidal. He is chemically impaired at this time. He is placed on hold. Psychiatric consultation requested. Admitted to IM for TCA overdose and metabolic encephalopathy Hospital Course: 07/27: No events on telemetry review noted. Patient had no seizure activity noted by staff or myself on encounter. Will follow psychiatry recommendations as well as poison control direction. Will monitor in IMCU for next 24hrs and patient can likely be downgraded if no events. 07/28: Assessment and plan: #Tricyclic antidepressant overdose - per reports, had taken 20-25 25 mg amytriptyline pills. - Poison Control Center contacted in ED: recommended serial EKG monitoring and administration of sodium bicarb is QRS > 100ms. - apparently unintentional OD - mental health consultation - QRS duration on serial EKGs: 89 ms, 91 ms, 79 ms. - K 3.7 - no indication at this time for sodium bicarb - continuous tele monitoring - ativan 2 mg IV prn seizure #Acute metabolic encephalopathy - likely metabolic in nature given OD on TCA meds. - CT scan of the brain showed no acute intracranial abnormality. - NPO - D5-1/2NS IVF #THC abuse -Urine drug screen is positive for marijuana. + 15 min behavioral health counseling on substance abuse and THC cessation #Headache - prn tylenol ##Advance care planning Disease education conducted, care plan discussed, diagnoses discussed, prognosis discussed, patient is full code, patient acknowledges understanding and agree with care plan, +30 minutes. The high probability of a clinically significant, sudden or life threatening deterioration of the [neuro] system(s) required my full and direct attention, intervention and personal management. The aggregate critical care time was [60] minutes. This time is in addition to time spent performing reported procedures but includes the following: [x] Data Review and interpretation [x] Patient assessment and monitoring of vital signs [x] Documentation [x] Medication orders and management Hospitalist Physical - Physical exam Narrative exam: Physical Exam: VITAL SIGNS: Reviewed. GENERAL: The patient appears normally developed, Vital signs as documented. Very drowsy HEAD: No signs of head trauma. EYES: Pupils are equal. Extraocular motions intact. EARS: Hearing grossly intact. MOUTH: Oropharynx is normal. NECK: No adenopathy, no JVD. CHEST: Chest with clear breath sounds bilaterally. No wheezes, rales, or rhonchi. CARDIAC: Regular rate and rhythm. S1 and S2, without murmurs, gallops, or rubs. VASCULAR: No Edema. Peripheral pulses normal and equal in all extremities. ABDOMEN: Soft, non tender and non distended. No rebound or guarding, and no masses palpated. Bowel Sounds normal. MUSCULOSKELETAL: Good range of motion of all major joints. Extremities without clubbing, cyanosis or edema. NEUROLOGIC EXAM: Unable to assess. PSYCHIATRIC: Unable to assess SKIN: detail exam as documented in skin assessment - Constitutional Vitals: Temp Pulse Resp BP Pulse Ox 97.4 F L 55 L 11 L 95/61 98 07/28/21 04:00 07/28/21 07:00 07/28/21 07:00 07/28/21 07:00 07/28/21 07:00 General appearance: Present: no acute distress, well-nourished Results - Labs CBC & Chem 7: 07/28/21 04:36 07/28/21 04:36 Labs: Laboratory Last Values WBC 7.4 K/mm3 (4.5-11.0) 07/28/21 04:36 RBC 4.37 M/mm3 (3.65-5.03) 07/28/21 04:36 Hgb 13.5 gm/dl (11.8-15.2) 07/28/21 04:36 Hct 39.8 % (35.5-45.6) 07/28/21 04:36 MCV 91 fl (84-94) 07/28/21 04:36 MCH 31 pg (28-32) 07/28/21 04:36 MCHC 34 % (32-34) 07/28/21 04:36 RDW 14.0 % (13.2-15.2) 07/28/21 04:36 Plt Count 160 K/mm3 (140-440) 07/28/21 04:36 Lymph % (Auto) 15.1 % (13.4-35.0) 07/28/21 04:36 Blair % (Auto) 6.7 % (0.0-7.3) 07/28/21 04:36 Eos % (Auto) 0.8 % (0.0-4.3) 07/28/21 04:36 Baso % (Auto) 0.3 % (0.0-1.8) 07/28/21 04:36 Lymph # (Auto) 1.1 K/mm3 (1.2-5.4) L 07/28/21 04:36 Blair # (Auto) 0.5 K/mm3 (0.0-0.8) 07/28/21 04:36 Eos # (Auto) 0.1 K/mm3 (0.0-0.4) 07/28/21 04:36 Baso # (Auto) 0.0 K/mm3 (0.0-0.1) 07/28/21 04:36 Seg Neutrophils % 77.1 % (40.0-70.0) H 07/28/21 04:36 Seg Neutrophils # 5.7 K/mm3 (1.8-7.7) 07/28/21 04:36 PT 13.9 Sec. (12.2-14.9) 07/27/21 00:25 INR 0.97 (0.87-1.13) 07/27/21 00:25 APTT 30.8 Sec. (24.2-36.6) 07/27/21 00:25 Sodium 138 mmol/L (137-145) 07/28/21 04:36 Potassium 4.0 mmol/L (3.6-5.0) 07/28/21 04:36 Chloride 105.0 mmol/L (98-107) 07/28/21 04:36 Carbon Dioxide 26 mmol/L (22-30) 07/28/21 04:36 Anion Gap 11 mmol/L 07/28/21 04:36 BUN 7 mg/dL (9-20) L 07/28/21 04:36 Creatinine 1.0 mg/dL (0.8-1.3) 07/28/21 04:36 Estimated GFR > 60 ml/min 07/28/21 04:36 BUN/Creatinine Ratio 7 % 07/28/21 04:36 Glucose 108 mg/dL (75-100) H 07/28/21 04:36 POC Glucose 98 mg/dL (70-105) 07/27/21 23:59 Calcium 8.5 mg/dL (8.4-10.2) 07/28/21 04:36 Total Bilirubin 0.70 mg/dL (0.1-1.2) 07/28/21 04:36 AST 13 units/L (5-40) 07/28/21 04:36 ALT 15 units/L (7-56) 07/28/21 04:36 Alkaline Phosphatase 52 units/L (35-129) 07/28/21 04:36 Total Protein 6.2 g/dL (6.3-8.2) L 07/28/21 04:36 Albumin 3.5 g/dL (3.9-5) L 07/28/21 04:36 Albumin/Globulin Ratio 1.3 % 07/28/21 04:36 TSH 1.380 mlU/mL (0.270-4.200) 07/27/21 00:25 Urine Color Straw (Yellow) 07/27/21 Unknown Urine Turbidity Clear (Clear) 07/27/21 Unknown Urine pH 6.0 (5.0-7.0) 07/27/21 Unknown Ur Specific [place] 1.010 (1.003-1.030) 07/27/21 Unknown Urine Protein <15 mg/dl mg/dL (Negative) 07/27/21 Unknown Urine Glucose (UA) Neg mg/dL (Negative) 07/27/21 Unknown Urine Ketones Neg mg/dL (Negative) 07/27/21 Unknown Urine Blood Neg (Negative) 07/27/21 Unknown Urine Nitrite Neg (Negative) 07/27/21 Unknown Urine Bilirubin Neg (Negative) 07/27/21 Unknown Urine Urobilinogen < 2.0 mg/dL (<2.0) 07/27/21 Unknown Ur Leukocyte Esterase Neg (Negative) 07/27/21 Unknown Urine WBC (Auto) < 1.0 /HPF (0.0-6.0) 07/27/21 Unknown Urine RBC (Auto) < 1.0 /HPF (0.0-6.0) 07/27/21 Unknown U Epithel Cells (Auto) < 1.0 /HPF (0-13.0) 07/27/21 Unknown Urine Mucus Few /HPF 07/27/21 Unknown Salicylates < 0.3 mg/dL (2.8-20.0) L 07/27/21 00:25 Urine Opiates Screen Presumptive negative 07/27/21 Unknown Urine Methadone Screen Presumptive negative 07/27/21 Unknown Acetaminophen 5.0 ug/mL (10.0-30.0) L 07/27/21 00:25 Ur Barbiturates Screen Presumptive negative 07/27/21 Unknown Ur Phencyclidine Scrn Presumptive negative 07/27/21 Unknown Ur Amphetamines Screen Presumptive negative 07/27/21 Unknown U Benzodiazepines Scrn Presumptive negative 07/27/21 Unknown Edgard 0.1 mmol/L (0.0-1.2) 07/27/21 00:25 Urine Cocaine Screen Presumptive negative 07/27/21 Unknown U Marijuana (THC) Screen Presumptive positive 07/27/21 Unknown Drugs of Abuse Note Disclamer 07/27/21 Unknown Plasma/Serum Alcohol < 0.01 % (0-0.07) 07/27/21 00:25 Coronavirus (PCR) Negative (Negative) 07/27/21 Unknown Morales/IV: Voiding Method Urinal Active Medications - Current Medications Current Medications: Generic Name Dose Route Start Last Admin Trade Name Freq PRN Reason Stop Dose Admin Acetaminophen 650 mg 07/27/21 02:17 Acetaminophen 325 Mg Tab PO Q4H PRN Pain MILD(1-3)/Fever >100.5/CORRALES Albuterol 2.5 mg 07/27/21 02:17 Albuterol 2.5 Mg/3 Ml Nebu IH Q3HRT PRN Shortness Of Breath Famotidine 20 mg 07/27/21 10:00 07/27/21 22:14 Famotidine 20 Mg/2 Ml Inj IV 20 mg BID VALERIE Administration Haloperidol Lactate 5 mg 07/27/21 00:19 Haloperidol Lactate 5 Mg/1 Ml Inj IM Q6HR PRN Agitation Heparin Sodium (Porcine) 5,000 unit 07/27/21 10:00 07/27/21 22:14 Heparin 5,000 Unit/1 Ml Vial SUB-Q 5,000 unit Q12HR VALERIE Administration Hydromorphone HCl 0.5 mg 07/27/21 02:17 Hydromorphone 1 Mg/1 Ml Inj IV Q3H PRN Pain , Severe (7-10) Lorazepam 2 mg 07/27/21 08:00 Lorazepam 2 Mg/Ml Vial IV Q5MIN PRN Seizures Morphine Sulfate 2 mg 07/27/21 02:17 Morphine 2 Mg/1 Ml Inj IV Q4H PRN Pain, Moderate (4-6) Naloxone HCl 0.1 mg 07/27/21 00:19 Naloxone 0.4 Mg/1 Ml Inj IV Q2MIN PRN Res Rate </= 8 or 02 SAT < 92% Ondansetron HCl 4 mg 07/27/21 02:17 Ondansetron 4 Mg/2 Ml Inj IV Q8H PRN Nausea And Vomiting Sodium Chloride 10 ml 07/27/21 10:00 07/27/21 22:15 Sodium Chloride 0.9% 10 Ml Flush Syringe IV Not Given BID VALERIE Sodium Chloride 10 ml 07/27/21 02:17 Sodium Chloride 0.9% 10 Ml Flush Syringe IV PRN PRN LINE FLUSH
[2021-07-28 10:29] VITALS: BP 127/81
[2021-07-28] MEDS: HEPARIN 5,000 UNIT/1 ML VIAL SUB-Q SCH (10:36)
[2021-07-28] MEDS: FAMOTIDINE 20 MG/2 ML INJ IV SCH (10:37)
--- NOTE | 2021-07-28 12:10 | Discharge Summary ---
Providers - Providers Date of Admission: 07/27/21 02:11 Date of discharge: 07/28/21 Attending physician: HEAVEN SOLANO MD 07/27/21 Consult to Case Management [CONS] Routine Services Needed at Discharge: New Car Driver 07/27/21 00:18 Consult to Mental Health [CONS] Stat Reason For Exam: od/ spoke to wyatt rain Primary care physician: JABIER TAPIA Hospitalization Reason for admission: acute metabolic encephalopathy Condition: Serious Hospital course: HPI: 40-year male with unknown past medical history was brought to the emergency room because sleepiness, lethargy, altered mental status, after overdose of amitriptyline, reportedly for headache. As per verbal report from emergency medical services, patient reportedly took 35 tablets of amitriptyline/Elavil, 1 hour prior to ER arrival, with a complaint of headache. The patient is not homicidal or suicidal. He is chemically impaired at this time. He is placed on hold. Psychiatric consultation requested. Admitted to IMCU for TCA overdose and metabolic encephalopathy Hospital Course: 07/27: No events on telemetry review noted. Patient had no seizure activity noted by staff or myself on encounter. Will follow psychiatry recommendations as well as poison control direction. Will monitor in IMCU for next 24hrs and patient can likely be downgraded if no events. 07/28: patient alert and oriented today. no events on tele monitor or seizure activity noted. Can be safely discharged home with instructions to follow up with primary care physician. Assessment and plan: #Tricyclic antidepressant overdose - per reports, had taken 20-25 25 mg amytriptyline pills. - Poison Control Center contacted in ED: recommended serial EKG monitoring and administration of sodium bicarb is QRS > 100ms. - apparently unintentional OD - mental health consultation - QRS duration on serial EKGs: 89 ms, 91 ms, 79 ms. - K 3.7 - no indication at this time for sodium bicarb - continuous tele monitoring - ativan 2 mg IV prn seizure #Acute metabolic encephalopathy - likely metabolic in nature given OD on TCA meds. - CT scan of the brain showed no acute intracranial abnormality. - NPO - D5-1/2NS IVF #THC abuse -Urine drug screen is positive for marijuana. + 15 min behavioral health counseling on substance abuse and THC cessation #Headache - prn tylenol ##Advance care planning Disease education conducted, care plan discussed, diagnoses discussed, prognosis discussed, patient is full code, patient acknowledges understanding and agree with care plan, +30 minutes. Disposition: 01 HOME / SELF CARE / HOMELESS Final Discharge Diagnosis (Prints w/discharge instructions): TCA overdose Time spent for discharge: 35 Core Measure Documentation - Palliative Care Palliative Care/ Comfort Measures: Not Applicable - Core Measures Any of the following diagnoses?: none Exam - Physical Exam Narrative exam: Physical Exam: VITAL SIGNS: Reviewed. GENERAL: The patient appears normally developed, Vital signs as documented. alert, not in any distress HEAD: No signs of head trauma. EYES: Pupils are equal. Extraocular motions intact. EARS: Hearing grossly intact. MOUTH: Oropharynx is normal. NECK: No adenopathy, no JVD. CHEST: Chest with clear breath sounds bilaterally. No wheezes, rales, or rhonchi. CARDIAC: Regular rate and rhythm. S1 and S2, without murmurs, gallops, or rubs. VASCULAR: No Edema. Peripheral pulses normal and equal in all extremities. ABDOMEN: Soft, non tender and non distended. No rebound or guarding, and no masses palpated. Bowel Sounds normal. MUSCULOSKELETAL: Good range of motion of all major joints. Extremities without clubbing, cyanosis or edema. NEUROLOGIC EXAM: A and O x4, sensory and motor function intact. CN I-XII intact PSYCHIATRIC: Appropriate mood SKIN: detail exam as documented in skin assessment - Constitutional Vitals: Temp Pulse Resp BP Pulse Ox 97.9 F 55 L 15 127/81 98 07/28/21 07:26 07/28/21 11:01 07/28/21 11:01 07/28/21 11:01 07/28/21 10:31 Plan Activity: no restrictions Weight Bearing Status: Full Weight Bearing Diet: regular Follow up with: JABIER TAPIA MD [Primary Care Provider] - 3-5 Days
--- NOTE | 2021-07-28 15:06 | Progress Note ---
Subjective - Reason for Consult Consult date: 07/28/21 Reason for consult: OD - Chief Complaint Chief complaint: The patient was seen today. He reports doing well. The patient denies intentional overdose stating that "I was trying to take enough dosage for my size, I miss calculated." He denies any current suicidal ideation and denies hallucinations. ROS Constitutional: Negative for weight loss EMT: Respiratory: Negative for cough or hemoptysis All other systems reviewed and are negative MENTAL STATUS EXAMINATION General Appearance: Dressed appropriately. Behavior: Calm and cooperative. Good eye contact. Mood: ok Affect:congruent to stated mood Speech: Normal Thought Process: Goal directed Thought Content:reality oriented Suicidal Ideation:Denies Homicidal Ideation: Denies Hallucinations: Denies Delusions: None elicited Insight and Judgment: Limited Memory/Cognition: Limited Assessment and Plan (1)Poisoning by drugs, unspecified Treatment Plan Continue home meds No medications prescribed Risks, benefits and alternatives of medications discussed with the patient, questions answered and consent obtained from patient. PSYCHOTHERAPY: Supportive psychotherapy provided MEDICAL: Per primary team DELIRIUM PRECAUTIONS: Please re-orient patient frequently, keep lights on during the day, and minimize benzodiazepines and opiates as these medications could worsen patient's confusion. SUPERVISOR ASSEMBLY: Per primary DISPOSITION: Do not recommend acute inpatient psychiatric hospitalization at this time. [facility] will provide patient with psychiatric outpatient resources. Will sign off. Thank you for the consult. Please contact with any questions and/or concerns. Case discussed with Dr. Cruz who agrees with current disposition Medications and Allergies Mental Status Exam - Vital signs Last Vital Signs Temp 97.9 F 07/28/21 07:26 Pulse 55 L 07/28/21 11:01 Resp 15 07/28/21 11:01 BP 127/81 07/28/21 11:01 Pulse Ox 98 07/28/21 10:31
== END 2021-07-28 12:55 | disposition home or self-care (01) | DRG 917 ==
LOC: ED 00:17 → IMCU 02:11
PROVIDERS: ADMIT Hospitalist; ATTEND Internal Medicine
DX: T43.011A Poisoning by tricyclic antidepressants, accidental (unintentional), initial encounter (principal); G93.41 Metabolic encephalopathy; Z20.822 Contact with and (suspected) exposure to COVID-19; Y92.89 Other specified places as the place of occurrence of the external cause; F12.10 Cannabis abuse, uncomplicated
CPT/HCPCS: 36415; 70450; 80048; 80053; 80178; 80307; 80320; 81001; 82962; 84443; 85025; 85610; 85730; 93005; 94640; G0378; J3490; J7070; Q0162; G0480; J1644; J7030; J7120; U0003